=== PATIENT | female | born 1990 | race Caucasian/White ===

== ENCOUNTER 2022-05-05 10:12 | Emergency (ER) | payer BC, SELFPAY ==
[2022-05-05 10:59] VITALS: BP 150/80; PULSE 70; RESP 18; TEMP 36.6; O2SAT 100
--- NOTE | 2022-05-05 11:46 | ED.GENADULT ---
HPI - General Adult General Chief complaint: Wound/Laceration Stated complaint: finger laceration History of Present Illness HPI narrative: patient is a 32-year-old female who presents to the [facility] via POV for evaluation a right index finger laceration that occurred just prior to arrival. Patient reports she was removing a toaster oven from her car when she accidentally lacerated finger on yhe bottom of the toaster oven. She reports bleeding and tenderness. Bleeding resolved with pressure. She is up-to-date on her tetanus. Related Data Home Medications Medication Instructions Recorded Confirmed sertraline 50 mg tablet 50 mg PO DAILY 05/05/22 05/05/22 Allergies Allergy/AdvReac Type Severity Reaction Status Date / Time No Known Allergies Allergy Verified 05/05/22 10:57 Review of Systems Review of Systems: Pertinent negatives: fever, chills, sweats, change in appetite, malaise, headache, dizziness, LOC, lymphadenopathy, vision changes, difficulty healing, petechiae, pruritus, easy bruising, uncontrolled bleeding, range of motion, deformity, paresthesias, loss of sensation, shortness of breath, chest pain, and heart palpitations/murmurs. PMFSH Comments I have reviewed and agree with the patient's past medical, surgical, social, and family hx as documented by the RN. There is no relevant family history pertinent to the presenting complaint. Exam Narrative: GENERAL: Well-appearing, well-nourished, and in no acute distress. HEAD: Normocephalic, atraumatic. No facial swelling appreciated. EYES: PERRLA and EOMI. No evidence of erythema, swelling, or drainage. ENT: Nares clear, no rhinorrhea or epistaxis.Mucous membranes moist and pink. Uvula is midline without erythema and swelling. No evidence of obstruction, petechial rash, cobblestoning, lesions, ulcers, erythema, swelling, exudates, peritonsillar abscess, tenting, or drooling. Breath odor and voice normal. NECK: Supple. No Lymphadenopathy or nuchal rigidity appreciated. CHEST: Bilateral lung chowdhury are clear to auscultation. No respiratory distress. No evidence of cough or pleuritic cp upon examination. HEART: Regular rate and rhythm. No murmur, gallop, or rub heard. Pulses 2+ throughout. EXTREMITIES: Normal range of motion. No edema. SKIN: Warm, dry. 1 cm, irregular laceration noted to the palmar side, distal end of right index finger. no evidence of bleeding. NEURO: No focal deficits. Alert and oriented x3. Course Course Level of Care: Express Care Visit Vital Signs Vital signs: Vital Signs Temperature 97.9 F 05/05/22 10:59 Pulse Rate 70 05/05/22 10:59 Respiratory Rate 18 05/05/22 10:59 Blood Pressure 150/80 H 05/05/22 10:59 Pulse Oximetry 100 05/05/22 10:59 Oxygen Delivery Room Air 05/05/22 10:59 Temperature 97.9 F 05/05/22 10:59 Pulse Rate 70 05/05/22 10:59 Respiratory Rate 18 05/05/22 10:59 Blood Pressure 150/80 H 05/05/22 10:59 Pulse Oximetry 100 05/05/22 10:59 Oxygen Delivery Room Air 05/05/22 10:59 Due to an elevated blood pressure, I had a detailed discussion with the patient and/or guardian regarding the need for follow-up with their primary care provider within the next 3-4 days. Patient verbalized understanding and agreed. Procedures Laceration Laceration 1: Date: 05/05/22 Site: other ( palmar aspect of right index finger) Side (If applicable): right Size (cm): 1 Description: linear, irregular and clean ====== Skin Level ====== Skin layer closed with: steri strips ( 3) ====== Subcutaneous Layer ====== ====== Muscle Layer ====== ====== Tendon Layer ====== Medical Decision Making Differential Diagnosis Differential Diagnosis: laceration, abrasion, avulsion Vital Signs Vital Signs: Vital Signs Temperature 97.9 F 05/05/22 10:59 Pulse Rate 70 05/05/22 10:59 Respiratory Rate 18 05/05/22 10:59
== END 2022-05-05 11:46 | disposition home or self-care (01) ==
PROVIDERS: Emergency Provider Nurse Practitioner Family; PCP Family Medicine
DX: S65.510A Laceration of blood vessel of right index finger, initial encounter (principal); W45.8XXA Other foreign body or object entering through skin, initial encounter
CPT/HCPCS: 99202; G0463

== ENCOUNTER 2024-09-22 20:28 | Emergency (ER) | payer OTHER, SELFPAY ==
--- NOTE | ~2024-09-22 | XR_ITS ---
EXAMINATION: XR foot LT min 3V DATE: 09/22/2024 21:23 INDICATION: Left foot pain and swelling. Injury. TECHNIQUE: 4 views of left foot were obtained. COMPARISON: None. FINDINGS: There is a bunionette deformity of the fifth digit. There are chip avulsion fractures of do rsolateral aspect of anterior process of calcaneus. Joint spaces are normal. IMPRESSION: 1. Chip avulsion fractures of dorsolateral aspect of anterior process of calcaneus. Reviewed, dictated and finalized at location A. IMPRESSION: 1. Chip avulsion fractures of dorsolateral aspect of anterior process of calcan eus.
--- NOTE | ~2024-09-22 | XR_ITS ---
EXAMINATION: XR foot RT min 3V DATE: 09/22/2024 21:23 INDICATION: Right foot injury. TECHNIQUE: 4 views of right foot were obtained. COMPARISON: None. FINDINGS: There is a bunionette deformity of the fifth digit. No fracture. Joint spaces are normal. IMPRESSION: 1. No fracture. Reviewed, dictated and finalized at location A. IMPRESSION: 1. No fracture.
--- OUTSIDE RECORDS SUMMARY | 2024-09-22 20:30 | XMS_ITS | Clinical Summary ---
Author Organization [address] Address [address] [place] [id number] Care Team Providers Care Customs House Broker Name Role Phone Bailey Dalton MD Primary Care Provi ulises Bailey Dalton MD Unavailable [phone] Allergies Active Allergy Reactions Criticality Noted Date Comments Clindamycin Hives Medium 04/15/2019 Erythromycin Unknown 04/15/2019 Medications omeprazole (PriLOSEC) 10 mg capsule Take 1 capsule (10 mg total) by mouth as needed Active cyclobenzaprine (FLEXERIL) 10 mg tablet Take 1 tablet (10 mg total) by mouth nightly as needed for muscle spasms 15 tablet 11/11/2023 Active sertraline (ZOLOFT) 50 mg tabletIndicatio ns:Anxiety,Depr ession, major, recurrent, mild TAKE 1 TABLET(50 MG) BY MOUTH DAILY 100 tablet 1 12/01/2023 Active Active Problems Problem Noted Date Diagnosed Date Breast cyst, right 05/17/2021 Menorrhagia with regular cycle 03/13/2021 Assessment & Plan (06/25/2022 8:55 AM SOLID WASTE LANDFILL TECHNICIAN): Continue to follow with MANAGER RETENTION- set up follow up Update me with any changes Assessment & Plan (03/13/2021 8:52 AM CDT): Previously treated with OCP Will refer to MANAGER RETENTION- does want to hold off on OCP's for now Will check labs for possible PCOS Update me after the visit Call for questions or concerns Well adult exam 05/01/2019 Overview (06/25/2022): Encouraged a healthy diet, and regular physical activity to her level Wear sun screen, seat belts No texting/drinking and driving Health Maintenance: Last PAP: 05/17/21- Neg Last Tdap: 04/2019 Last Flu: 2021 Last COVID: encouraged Assessment & Plan (06/25/2022 8:53 AM SOLID WASTE LANDFILL TECHNICIAN): Encouraged a healthy diet, and regular physical activity to her level Wear sun screen, seat belts No texting/drinking and driving Health Maintenance: Last PAP: 05/17/21- Neg Last Tdap: 04/2019 Last Flu: 2021 Last COVID: encouraged Assessment & Plan (03/13/2021 8:43 AM CDT): Encouraged a healthy diet, and regular physical activity to her level Wear sun screen, seat belts No texting/drinking and driving Health Maintenance: Last PAP: 2years ago- [facility]. Will refer to MANAGER RETENTION Last Tdap: 04/2019 Last Flu: encourage Last COVID: encouraged Assessment & Plan (05/01/2019 11:09 AM CDT): Work on healthy low carb diet Healthy activity for 30 minutes daily Wear sun screen, seat belts No texting/drinking and driving Health Maintenance: Last PAP:last month Last Tdap:: today Last Flu: todat IFG (impaired fasting glucose) 05/01/2019 Assessment & Plan (06/25/2022 8:54 AM SOLID WASTE LANDFILL TECHNICIAN): Chronic Labs ordered Continue healthy changes Call for questions or concerns Assessment & Plan (03/13/2021 8:44 AM CDT): Continue to work on low carb diet Recheck labs in 6 months Call for questions or concerns Assessment & Plan (05/01/2019 11:10 AM CDT): Labs ordered Low carb diet Class 3 severe obesity due t o excess calories without serious comorbidity with body mass index (BMI) of 40.0 to 44.9 in adult 05/01/2019 Assessment & Plan (11/11/2023 3:30 PM CDT): BMI Follow-up includes: exercise counseling. Assessment & Plan (06/25/2022 8:54 AM SOLID WASTE LANDFILL TECHNICIAN): BMI Follow-up includes: nutrition counseling. Assessment & Plan (03/13/2021 8:44 AM CDT): BMI Follow-up includes: nutrition counseling. Assessment & Plan (09/09/2019 8:54 AM SOLID WASTE LANDFILL TECHNICIAN): BMI Follow-up includes: nutrition counseling. Assessment & Plan (05/01/2019 11:11 AM CDT): BMI Follow-up includes: nutrition counseling. Depression, major, recurrent, mild 04/15/2019 Assessment & Plan (06/25/2022 8:54 AM SOLID WASTE LANDFILL TECHNICIAN): Chronic, stable Continue zoloft Continue healthy changes for her mood Call if s/sx worsen or change Assessment & Plan (03/13/2021 8:46 AM CDT): Continue healthy changes for her mood Continue zoloft- encouraged to take zoloft daily Recheck in 6 months Call for questions or concerns Assessment & Plan (09/09/2019 8:53 AM SOLID WASTE LANDFILL TECHNICIAN): Doing well on current regimen Continue current medication Continue healthy changes to boost mood- exercise, healthy diet, using support structures that are in place, and good sleep habits If mood worsens or changes, please contact the office Anything emergent, to the er Call for questions or concerns Assessment & Plan (05/01/2019 11:10 AM CDT): Improved Will increase zoloft Work on healthy changes to boost mood Continue with therapist Any dangerous thoughts to the er Assessment & Plan (04/15/2019 8:50 AM CDT): Patient reiterated no suicidal thoughts at this time zoloft 25 mg daily take medication as directed encouraged healthy diet and exercise encouraged patient to see a counselor use support structures you have in place consider meditation-look at Calm claude try to work on healthy sleep habits If mood worsens or changes, please contact the office Anything emergent, to the er Anxiety 04/15/2019 Assessment & Plan (06/25/2022 8:54 AM SOLID WASTE LANDFILL TECHNICIAN): Chronic, stable Continue zoloft Continue healthy changes for her mood Call if s/sx worsen or change Assessment & Plan (03/13/2021 8:44 AM CDT): Mood is fair Continue zoloft- try to take daily Continue to work on healthy changes for her mood Call for questions or concerns Assessment & Plan (04/15/2019 8:50 AM CDT): Will start zoloft Continue to follow with her therapist Update me with any changes Follow up in 4 weeks Call for questions or concerns Resolved Problems Problem Noted Date Diagnosed Date Resolved Date Pap smear for cervical cancer screening 05/17/2021 06/25/2022 STD exposure 05/17/2021 06/25/2022 Sternum pain 03/13/2021 09/03/2023 Assessment & Plan (03/13/2021 8:50 AM CDT): Improving Xray ordered Motrin as needed Call for questions or concerns Left elbow pain 03/13/2021 09/03/2023 Assessment & Plan (03/13/2021 8:49 AM CDT): Improving Xray ordered Rest, ice as needed Motrin as needed Call for questions or concerns Loose stools 03/13/2021 06/25/2022 Assessment & Plan (03/13/2021 8:50 AM CDT): Will check labs Consider referral to GI FODMAPS list given Call for questions or concerns Elevated liver function tests 05/01/2019 09/03/2023 Assessment & Plan (03/13/2021 8:45 AM CDT): Recheck was normal Assessment & Plan (05/01/2019 11:11 AM CDT): Recheck in 3 months Nausea 04/15/2019 03/13/2021 Assessment & Plan (04/15/2019 8:51 AM CDT): With anxiety Will start medication to treat anxiety, and see if symptoms improve If symptoms change or worsen, let me know Immunizations Immunization Administration Dates Next Due Influenza, Quadrivalent, Spl it, Preservative Free, Intramuscular 05/01/2019 Influenza, Unspecified 04/14/2023(Deferr ed: Patient Refused),04/14/2022,04/14/2021(Deferre d: Patient Refused),04/14/2018(Deferred: Patient Refused) Meningococcal ACWY, Unspecified 02/19/2021 Tdap 05/01/2019 Surgical History Surgery Date Site/Laterality Comments TONSILLECTOMY 07/15/2005 - 07/14/2006 WISDOM TOOTH EXTRACTION 07/15/2009 - 07/14/2010 ABCESS DRAINAGE 07/15/2011 - 07/14/2012 MRSA treatment Medical History Medical History Date Comments Depression Anxiety GERD (gastroesophageal reflux disease) Peptic ulceration History of multiple miscarriages 2 Sleep apnea 2019 Menstrual problem Family History Medical History Relation Name Comments ADD / ADHD Brother OCD Brother Hypertension Father Horace Browning Psoriasis Father Horace Browning Heart disease Maternal Grandfather Cody Dementia Maternal Grandmother Rita Diabetes Maternal Grandmother Rita Stroke Maternal Grandmother Rita Asthma Mother Genevieve Browning Gastroesophageal Reflux Disease Mother Genevieve Hamm nald Heart disease Mother Genevieve Browning Heart disease Mother's Brother Nick No Known Problems Paternal Grandfather Heart disease Paternal Grandmother Марина Stroke Paternal Grandmother Марина Breast cancer Neg Hx Relation Name Status Comments Brother Alive Father Horace Browning Alive Maternal Grandfather Cody Maternal Grandmother Rita Mother Genevieve Browning Alive Mother's Brother Nick Paternal Grandfather Alive Paternal Grandmother Марина Social History Tobacco Use Types Packs/Day Years Used Date Smoking Tobacco: Former Cigarettes 0.2 5 0 07/15/2011 - 01/30/2019 Hookah E-cigarettes Smokeless Tobacco: Never Tobacco Cessation:Counseling Given: Not Answered Alcohol Use Standard Drinks/Week Comments Yes 0 (1 standard drink = 0.6 oz pur e alcohol) AUDIT-C Answer Date Recorded Q1: How often do you have a drink containing alc ohol? 2-4 times a month 11/11/2023 Q2: How many drinks containi ng alcohol do you have on a typical day when you are drinking? 1 or 2 11/11/2023 Q3: How often do you have si x or more drinks on one occasion? Never 11/11/2023 PHQ-2 Answer Date Recorded PHQ-2 Total Score (If total score is 3 or more points, staff should administer the PHQ-9) 0 11/11/2023 Personal Safety Answer Date Recorded Getting School Help Needed Not on file 06/25 Comments No Sex and Gender Information Value Date Recorded Sex Assigned at Not on file Legal Sex Female 8:55 PM SOLID WASTE LANDFILL TECHNICIAN Gender Identity Female 10/04/2019 8:16 PM CDT Sexual Orientation Straight 10/04/2019 8: 16 PM CDT Obstetrics History Last Filed Vital Signs Vital Sign Reading Time Taken Comments Blood Pressure 120/78 11/11/2023 2:55 PM CDT Pulse 76 11/11/2023 2:55 PM CDT Temperature 36.7 C (98 F) 11/11/2023 2:55 PM CDT Respiratory Rate 16 11/11/2023 2:55 PM CDT Oxygen Saturation 99% 11/11/2023 2:55 PM CDT Inhaled Oxygen Concentration - - Weight 116.9 kg (257 lb 12.8 oz) 11/11/2023 2:55 PM CDT Height 165.1 cm (5' 5 ) 11/11/2023 2:55 PM CDT Body Mass Index 42.9 11/11/2023 2:55 PM CDT Plan of Treatment Health Maintenance Due Date Last Done Comments Hepatitis B Screening 2010 Covid-19 Vaccine ( season) 2024 03/22/2021, 02/22/2021 Influenza Vaccine (#1) 2024 04/14/2022, 2018 Cervical Cancer Screening 05/17/2024 05/17/2021 Regular Well Visit/Exam 18-64 09/03/2024 09/03/2023, 09/03/2023, 06/25/2022, Additional history exists Depression Screening 11/10/2024 11/11/2023, 09/03/2023, 09/03/2023, Additional history exists DTaP/Tdap/Td Vaccine (2 - Td or Tdap) 05/01/2029 05/01/2019 Hepatitis C Screening Completed 10/10/2013 HPV Vaccines Aged Out No longer eligi ble based on patient's age to complete this topic Pneumococcal vaccine <65 Aged Out No longer eligible based on patient's age to complete this topic Varicella Vaccines Discontinued Procedures Procedure Name Priority Date/Time Associated Diagnosis Comments HEPATITIS PANEL, ACUTE Routine 10/10/2013 4:00 PM CDT from Last 3 Months or Most Recently Relevant to Health Maintenance Results * (ABNORMAL) Hepatitis panel, acute (10/10/2013 4:00 PM CDT) HepBsAg NONREACT NONREACTIVE 10/10/2013 5:33 PM CDT [facility] [employer] HISTORICAL RESULTS Comment: Siemens CentaurXP using JOSIAH (chemiluminescent immunoassay) technology. NONREACTIVE: IgM antibodies to Hepatitis B Surface antigen not detected. REACTIVE: IgM antibodies to Hepatitis B Surface antigen detected. Reactive results will be confirmed by neutralization testing. HBsAb (immune status) REACTIVE(H) NONREACTIVE Comment: Siemens CentaurXP using JOSIAH (chemiluminescent immunoassay) technology. NONREACTIVE: IgM antibodies to Hepatitis B Surface antibody not detected. REACTIVE: IgM antibodies to Hepatitis B Surface antibody detected. Hep B core IgM NONREACT NONREACTIVE 4 5:33 PM CDT [facility] HISTORICAL RESULTS Comment: Siemens CentaurXP using JOSIAH (chemiluminescent immunoassay) technology. NONREACTIVE: IgM antibodies to Hepatitis B Core antigen not detected. EQUIVOCAL: IgM antibodies to Hepatitis B Core antigen may or may not be present. Obtain a new specimen and retest. REACTIVE: IgM antibodies to Hepatitis B Core antigen detected. Hep A IgM NONREACT NONREACTIVE Comment: Siemens CentaurXP using JOSIAH (chemiluminescent immunoassay) technology. NONREACTIVE: IgM antibodies to Hepatitis A not detected. This does not exclude possibility of exposure to Hepatitis A or early acute infection. EQUIVOCAL:IgM antibodies to Hepatitis A may or may not be present. Suggest recollection and retest. REACTIVE: Antibodies to Hepatitis A detected. Hep C Ab NONREACT NONREACTIVE 10/10/2013 5:33 PM CDT [facility] HISTORICAL RESULTS Comment: Siemens CentaurXP using JOSIAH (chemiluminescent immunoassay) technology. NONREACTIVE: Antibodies to Hepatitis C not detected. This does not exclude early acute Hepatitis C infection, possibility of exposure to Hepatitis C, antibodies below detection limit, or to lack of antibody reactivity to the antigen used in this assay. EQUIVOCAL: Antibodies to Hepatitis C may or may not be present. Sample to be confirmed by real-time PCR method. REACTIVE: Antibodies to Hepatitis C detected. 10/10/2013 4:00 PM CDT 10/10/2013 4:08 PM CDT us Sammie Chi NP LAB MICROBIOLOGY - GENERAL O RDERABLES Final Result Performing Organization Address City/State/[facility] Co de Phone Number [facility] HISTORICAL RESULTS from Last 3 Months or Most Recently Relevant to Health Maintenance Insurance [facility] CHOICE PLUS Care Teams Customs House Broker Relationship Specialty Start Date End Date Bailey Dalton MD [address] [place] [address] PCP - General 09/09/19 Bailey Dalton MD [address] [place] [address] Family Medicine 09/09/19
--- OUTSIDE RECORDS SUMMARY | 2024-09-22 20:30 | XMS_ITS | Referral Summary ---
Author Organization [address] Address [address] [place] [id number] Care Team Providers Care Cardiology Clinical Consultant Name Role Phone Bailey Dalton MD Primary Care Provi ulises Bailey Dalton MD Unavailable [phone] Allergies Active Allergy Reactions Criticality Noted Date [...] 03/13/2021 Assessment & Plan (06/25/2022 8:55 AM MIXER AND SCALER): Continue to follow with DOOR MACHINE OPERATOR- set up follow up Update me with any changes Assessment & Plan (03/13/2021 8:52 AM CDT): Previously treated with OCP Will refer to DOOR MACHINE OPERATOR- does want to hold off on OCP's [...] encouraged Assessment & Plan (06/25/2022 8:53 AM MIXER AND SCALER): Encouraged a healthy diet, and regular physical [...] driving Health Maintenance: Last PAP: 2years ago- [facility]. Will refer to DOOR MACHINE OPERATOR Last Tdap: 04/2019 Last Flu: encourage Last COVID: encouraged Assessment & Plan (05/01/2019 11:09 AM CDT): Work on healthy low carb diet Healthy activity for 30 minutes daily Wear sun screen, seat belts No texting/drinking and driving Health Maintenance: Last PAP:last month Last Tdap:: today Last Flu: todat IFG (impaired fasting glucose) 05/01/2019 Assessment & Plan (06/25/2022 8:54 AM MIXER AND SCALER): Chronic Labs ordered Continue healthy changes Call [...] counseling. Assessment & Plan (06/25/2022 8:54 AM MIXER AND SCALER): BMI Follow-up includes: nutrition counseling. Assessment & Plan (03/13/2021 8:44 AM CDT): BMI Follow-up includes: nutrition counseling. Assessment & Plan (09/09/2019 8:54 AM MIXER AND SCALER): BMI Follow-up includes: nutrition counseling. Assessment & Plan (05/01/2019 11:11 AM CDT): BMI Follow-up includes: nutrition counseling. Depression, major, recurrent, mild 04/15/2019 Assessment & Plan (06/25/2022 8:54 AM MIXER AND SCALER): Chronic, stable Continue zoloft Continue healthy changes for her mood Call if s/sx worsen or change Assessment & Plan (03/13/2021 8:46 AM CDT): Continue healthy changes for her mood Continue zoloft- encouraged to take zoloft daily Recheck in 6 months Call for questions or concerns Assessment & Plan (09/09/2019 8:53 AM MIXER AND SCALER): Doing well on current regimen Continue current [...] 04/15/2019 Assessment & Plan (06/25/2022 8:54 AM MIXER AND SCALER): Chronic, stable Continue zoloft Continue healthy changes [...] Refused) Meningococcal ACWY, Unspecified 02/19/2021 Tdap 05/01/2019 Social History Tobacco Use Types Packs/Day Years [...] on file Legal Sex Female 8:55 PM MIXER AND SCALER Gender Identity Female 10/04/2019 8:16 PM CDT Sexual Orientation Straight 10/04/2019 8: 16 PM CDT Last Filed Vital Signs Vital Sign Reading [...] 11/11/2023 2:55 PM CDT Plan of Treatment Not on file Procedures Procedure Name Priority Date/Time Associated Diagnosis Comments HEPATITIS PANEL, ACUTE Routine 10/10/2013 4:00 PM CDT from Last 3 Months or Most Recently Relevant to Health Maintenance Results * (ABNORMAL) Hepatitis panel, acute (10/10/2013 4:00 PM CDT) HepBsAg NONREACT NONREACTIVE 10/10/2013 5:33 PM CDT [facility] HISTORICAL RESULTS Comment: Siemens FangxinmeiaurXP using JOSIAH (chemiluminescent immunoassay) technology. NONREACTIVE: IgM antibodies to Hepatitis B Surface antigen not detected. REACTIVE: IgM antibodies to Hepatitis B Surface antigen detected. Reactive results will be confirmed by neutralization testing. HBsAb (immune status) REACTIVE(H) NONREACTIVE 10/10/2013 4:53 PM CDT [facility] HISTORICAL RESULTS Comment: Siemens CentaurXP using JOSIAH (chemiluminescent immunoassay) technology. NONREACTIVE: IgM antibodies to Hepatitis B Surface antibody not detected. REACTIVE: IgM antibodies to Hepatitis B Surface antibody detected. Hep B core IgM NONREACT NONREACTIVE 4 5:33 PM CDT [facility] HISTORICAL RESULTS Comment: Siemens CentaurXP using JOSIAH (chemiluminescent immunoassay) technology. NONREACTIVE: IgM antibodies to Hepatitis B Core antigen not detected. EQUIVOCAL: IgM antibodies to Hepatitis B Core antigen may or may not be present. Obtain a new specimen and retest. REACTIVE: IgM antibodies to Hepatitis B Core antigen detected. Hep A IgM NONREACT NONREACTIVE 10/10/2013 5:33 PM CDT [facility] HISTORICAL RESULTS Comment: Siemens CentaurXP using JOSIAH (chemiluminescent immunoassay) technology. NONREACTIVE: IgM antibodies to Hepatitis A not detected. This does not exclude possibility of exposure to Hepatitis A or early acute infection. EQUIVOCAL:IgM antibodies to Hepatitis A may or may not be present. Suggest recollection and retest. REACTIVE: Antibodies to Hepatitis A detected. Hep C Ab NONREACT NONREACTIVE 10/10/2013 5:33 PM CDT [facility] HISTORICAL RESULTS Comment: Siemens CentaurXP using JOSIAH [...] 4:00 PM CDT 10/10/2013 4:08 PM CDT Sammie Chi NP LAB MICROBIOLOGY - GENERAL O RDERABLES Final Result Performing Organization Address City/State/[facility] Co de Phone Number [facility] HISTORICAL RESULTS from Last 3 Months or Most Recently Relevant to Health Maintenance Insurance [facility] CHOICE PLUS Care Teams Cardiology Clinical Consultant Relationship Specialty Start Date End Date Bailey Dalton MD [address] [place] [address] PCP - General 09/09/19 Bailey Dalton MD [address] [place], [place] [id number] Family Medicine 09/09/19
[2024-09-22 20:32] VITALS: BP 126/68; PULSE 68; RESP 14; TEMP 36.3; O2SAT 100
--- OUTSIDE RECORDS SUMMARY | 2024-09-22 21:47 | XMS_ITS | Referral Summary ---
Author Organization [address] Address [address] [place] [id number] Care Team Providers Care Quality Associate Name Role Phone Bailey Dalton MD Primary Care Provi ulises Bailey Dalton MD Unavailable [phone] Allergies Active Allergy Reactions Criticality Noted Date [...] 03/13/2021 Assessment & Plan (06/25/2022 8:55 AM EXECUTIVE OFFICER): Continue to follow with SAP TECHNICAL DEVELOPER- set up follow up Update me with any changes Assessment & Plan (03/13/2021 8:52 AM CDT): Previously treated with OCP Will refer to SAP TECHNICAL DEVELOPER- does want to hold off on OCP's [...] encouraged Assessment & Plan (06/25/2022 8:53 AM EXECUTIVE OFFICER): Encouraged a healthy diet, and regular physical [...] driving Health Maintenance: Last PAP: 2years ago- [facility]. Will refer to SAP TECHNICAL DEVELOPER Last Tdap: 04/2019 Last Flu: encourage Last COVID: encouraged Assessment & Plan (05/01/2019 11:09 AM CDT): Work on healthy low carb diet Healthy activity for 30 minutes daily Wear sun screen, seat belts No texting/drinking and driving Health Maintenance: Last PAP:last month Last Tdap:: today Last Flu: todat IFG (impaired fasting glucose) 05/01/2019 Assessment & Plan (06/25/2022 8:54 AM EXECUTIVE OFFICER): Chronic Labs ordered Continue healthy changes Call [...] counseling. Assessment & Plan (06/25/2022 8:54 AM EXECUTIVE OFFICER): BMI Follow-up includes: nutrition counseling. Assessment & Plan (03/13/2021 8:44 AM CDT): BMI Follow-up includes: nutrition counseling. Assessment & Plan (09/09/2019 8:54 AM EXECUTIVE OFFICER): BMI Follow-up includes: nutrition counseling. Assessment & Plan (05/01/2019 11:11 AM CDT): BMI Follow-up includes: nutrition counseling. Depression, major, recurrent, mild 04/15/2019 Assessment & Plan (06/25/2022 8:54 AM EXECUTIVE OFFICER): Chronic, stable Continue zoloft Continue healthy changes for her mood Call if s/sx worsen or change Assessment & Plan (03/13/2021 8:46 AM CDT): Continue healthy changes for her mood Continue zoloft- encouraged to take zoloft daily Recheck in 6 months Call for questions or concerns Assessment & Plan (09/09/2019 8:53 AM EXECUTIVE OFFICER): Doing well on current regimen Continue current [...] 04/15/2019 Assessment & Plan (06/25/2022 8:54 AM EXECUTIVE OFFICER): Chronic, stable Continue zoloft Continue healthy changes [...] on file Legal Sex Female 8:55 PM EXECUTIVE OFFICER Gender Identity Female 10/04/2019 8:16 PM CDT [...] (10/10/2013 4:00 PM CDT) HepBsAg NONREACT NONREACTIVE Comment: Siemens AffresolaurXP using JOSIAH (chemiluminescent immunoassay) technology. NONREACTIVE: IgM [...] IgM NONREACT NONREACTIVE 4 5:33 PM CDT [facility] HISTORICAL RESULTS Comment: Siemens CentaurXP using JOSIAH (chemiluminescent immunoassay) technology. NONREACTIVE: IgM antibodies to Hepatitis B Core antigen not detected. EQUIVOCAL: IgM antibodies to Hepatitis B Core antigen may or may not be present. Obtain a new specimen and retest. REACTIVE: IgM antibodies to Hepatitis B Core antigen detected. Hep A IgM NONREACT NONREACTIVE 10/10/2013 5:33 PM CDT [facility] Comment: Siemens CentaurXP using JOSIAH (chemiluminescent immunoassay) technology. NONREACTIVE: IgM antibodies to Hepatitis A not detected. This does not exclude possibility of exposure to Hepatitis A or early acute infection. EQUIVOCAL:IgM antibodies to Hepatitis A may or may not be present. Suggest recollection and retest. REACTIVE: Antibodies to Hepatitis A detected. Hep C Ab NONREACT NONREACTIVE Comment: Siemens CentaurXP using JOSIAH [...] O RDERABLES Final Result Performing Organization Address City/State/[facility] Co de Phone Number [facility] HISTORICAL RESULTS from Last 3 Months or Most Recently Relevant to Health Maintenance Insurance [facility] CHOICE PLUS Care Teams Quality Associate Relationship Specialty Start Date End Date Bailey Dalton MD [address] [place] [address] PCP - General 09/09/19 Bailey Dalton MD [address] [place], [place] [id number] Family Medicine 09/09/19
--- OUTSIDE RECORDS SUMMARY | 2024-09-22 21:47 | XMS_ITS | Clinical Summary ---
Author Organization [address] Address [address] [place] [id number] Care Team Providers Care Antique Furniture Reproducer Name Role Phone Bailey Dalton MD Primary Care Provi ulises Bailey Dalton MD Unavailable [phone] Allergies Active Allergy Reactions Criticality Noted Date [...] 03/13/2021 Assessment & Plan (06/25/2022 8:55 AM MANAGER FORENSIC): Continue to follow with CLOTH WEAVER- set up follow up Update me with any changes Assessment & Plan (03/13/2021 8:52 AM CDT): Previously treated with OCP Will refer to CLOTH WEAVER- does want to hold off on OCP's [...] encouraged Assessment & Plan (06/25/2022 8:53 AM MANAGER FORENSIC): Encouraged a healthy diet, and regular physical [...] driving Health Maintenance: Last PAP: 2years ago- [facility]. Will refer to CLOTH WEAVER Last Tdap: 04/2019 Last Flu: encourage Last COVID: encouraged Assessment & Plan (05/01/2019 11:09 AM CDT): Work on healthy low carb diet Healthy activity for 30 minutes daily Wear sun screen, seat belts No texting/drinking and driving Health Maintenance: Last PAP:last month Last Tdap:: today Last Flu: todat IFG (impaired fasting glucose) 05/01/2019 Assessment & Plan (06/25/2022 8:54 AM MANAGER FORENSIC): Chronic Labs ordered Continue healthy changes Call [...] counseling. Assessment & Plan (06/25/2022 8:54 AM MANAGER FORENSIC): BMI Follow-up includes: nutrition counseling. Assessment & Plan (03/13/2021 8:44 AM CDT): BMI Follow-up includes: nutrition counseling. Assessment & Plan (09/09/2019 8:54 AM MANAGER FORENSIC): BMI Follow-up includes: nutrition counseling. Assessment & Plan (05/01/2019 11:11 AM CDT): BMI Follow-up includes: nutrition counseling. Depression, major, recurrent, mild 04/15/2019 Assessment & Plan (06/25/2022 8:54 AM MANAGER FORENSIC): Chronic, stable Continue zoloft Continue healthy changes for her mood Call if s/sx worsen or change Assessment & Plan (03/13/2021 8:46 AM CDT): Continue healthy changes for her mood Continue zoloft- encouraged to take zoloft daily Recheck in 6 months Call for questions or concerns Assessment & Plan (09/09/2019 8:53 AM MANAGER FORENSIC): Doing well on current regimen Continue current [...] 04/15/2019 Assessment & Plan (06/25/2022 8:54 AM MANAGER FORENSIC): Chronic, stable Continue zoloft Continue healthy changes [...] on file Legal Sex Female 8:55 PM MANAGER FORENSIC Gender Identity Female 10/04/2019 8:16 PM CDT [...] HepBsAg NONREACT NONREACTIVE 10/10/2013 5:33 PM CDT [facility] [employer] HISTORICAL RESULTS Comment: Siemens CentaurXP using JOSIAH [...] IgM NONREACT NONREACTIVE 4 5:33 PM CDT [facility] HISTORICAL RESULTS Comment: Siemens CentaurXP using JOSIAH [...] Ab NONREACT NONREACTIVE 10/10/2013 5:33 PM CDT [facility] [place] Comment: Siemens CentaurXP using JOSIAH [...] O RDERABLES Final Result Performing Organization Address City/State/[facility] Co de Phone Number [facility] [place] H[place] RES[place] from Last 3 Months or Most Recently Relevant to Health Maintenance Insurance [facility] CHOICE PLUS Care Teams Antique Furniture Reproducer Relationship Specialty Start Date End Date Bailey Dalton MD [address] [place] [address] PCP - General 09/09/19 Bailey Dalton MD [address] [place] [address] Family Medicine 09/09/19
--- NOTE | 2024-09-22 22:01 | ED_ITS ---
HPI - Extremity Injury (Lower) General Chief Complaint: Extremity Injury, Lower Stated Complaint: L foot pain Time Seen by Provider: 09/22/24 21:15 History of Present Illness HPI Narrative: 34-year-old female presenting for evaluation of foot injury while she was on a porch swing. The swing collapsed and she landed on her left foot and the porch fell on top lip. She was able to get up unassisted but knows that she is having some painful walking. She had minor abrasions and bleeding to her left 4th and 5th toe. Previous nail avulsions on those toes as well. Endorses having her tetanus already updated recently. No head trauma or loss consciousness. Was otherwise in her normal state of health. Related Data Home Medications ?Medication ?Instructions ?Recorded ?Confirmed ?Last Taken ?Type sertraline 50 mg tablet 50 mg PO DAILY 05/05/22 05/05/22 Unknown History Allergies Allergy/AdvReac Type Severity Reaction Status Date / Time clindamycin Allergy Unknown Rash Verified 09/22/24 20:34 Review of Systems Review of Systems: As reviewed above in HPI Exam Narrative: GENERAL: [Well-appearing, well-nourished, and in no acute distress.] HEAD: [Normocephalic, atraumatic.] EYES: [PERRLA and EOMI.] ENT: Nares clear, no rhinorrhea or epistaxis. Mucous membranes moist. NECK: Supple. CHEST: [Clear to auscultation. No respiratory distress.] HEART: [Regular rate and rhythm]. No murmur heard. [Normal peripheral pulses.] ABDOMEN: [Soft, nondistended], [nontender], [No rigidity or guarding] EXTREMITIES: Swelling and tenderness over the left lateral aspect of the malleolus on the left foot. Fourth toe has a nail avulsion with incomplete separation, no hematoma or bleeding. Small abrasion left lateral midfoot. No bleeding. No open fracture. Plantar and dorsiflexion with 5/5 strength b ilaterally. Minor tenderness over the right lateral malleolus as well without any bruising or overlying skin changes. No plantar ecchymosis bilaterally. Able to ambulate although uncomfortable. SKIN: Warm, dry, no rash. NEURO: [No focal deficits]. Alert and oriented [x3.] PSYCH: [Normal mood and affect.] Course Vital Signs Vital signs: Vital Signs Temperature 36.3 C L 09/22/24 20:32 Pulse Rate 68 09/22/24 20:32 Respiratory Rate 14 09/22/24 20:32 Blood Pressure 126/68 09/22/24 20:32 Pulse Oximetry 100 09/22/24 20:32 Oxygen Delivery Room Air 09/22/24 20:32 Temperature 36.3 C L 09/22/24 20:32 Pulse Rate 68 09/22/24 20:32 Respiratory Rate 14 09/22/24 20:32 Blood Pressure 126/68 09/22/24 20:32 Pulse Oximetry 100 09/22/24 20:32 Oxygen Delivery Room Air 09/22/24 20:32 Procedures Orthopedic Splinting/Casting Injury #1: Splinting/Casting Date: 09/22/24 Splinting/Casting Time: 22:09 Side: left Lower Extremity Injury Location: ankle Lower Extremity Immobilizer: posterior splint Splint: customized in ED Pre-Procedure Neuro Vascular Exam: normal Post-Procedure Neuro Vascular Exam: normal Other Orthopedic Equipment: crutches MDM - Extremity Injury (Lower) MDM Narrative Medical decision making narrative: 34-year-old female presenting to the emergency department for injury to her foot after she fell off a porch swing. Patient has some minor abrasions to the left lateral foot as well as a partial nail avulsion of the 4th digit. Able to wiggle her toes and has good plantar and dorsiflexion. There is some focal swelling and tenderness of the left lateral malleolus. No overlying skin changes or obvious fracture. X-rays of the bilateral ankles and feet were obtained given the injury. She politely declined any analgesia medications. She is hemodynamically stable with 2+ dorsalis pedis pulses and warm extremities. X-ray of the left foot shows chip avulsion fracture of the dorsal lateral anterior process of the calcaneus. Right ankle without any fracture deformity. Patient was provided a short leg posterior splint for stability and pain control. Her left 4th toe has a partial nail avulsion which I offered to fully remove the patient politely declined. Neosporin was applied and wound was cleaned and dressed. She will be given crutches for ambulation and referred to Podiatry for outpatient follow-up. Patient's questions were answered she was safe for discharge home at this time and given return precautions. Medical Records Attestation: I reviewed the patient's medical records. Lab Data Attestation: I reviewed the patient's lab results. Imaging Data Attestation: I personally reviewed and interpreted this imaging study as follows: My impression: Impressions Foot X-Ray 09/22/24 21:29 IMPRESSION: 1. Chip avulsion fractures of dorsolateral aspect of anterior process of calcaneus. Foot X-Ray 09/22/24 21:30 IMPRESSION: 1. No fracture. Discharge Plan Discharge Clinical Impression: Ankle sprain and strain, Acquired calcaneus deformity of left ankle Patient Disposition: Home, Self-Care Condition: Stable Instructions: Antibiotic Form Additional Instructions: Your x-ray shows a small chip fracture of the dorsal lateral aspect of your left calcaneus. Recommendations for pain control including Tylenol and ibuprofen as well as maintaining the splint and crutches for ambulation support. Will refer you to a hydro station operator and independent living specialist to help provide further recommendations and treatment options. Return with any new or worsening concerns such as increased swelling, numbness in the foot, increased pain, difficulty ambulating or any other concerns. Keep the nail avulsion clean and dressed and you can apply Neosporin or bacitracin to this. The toenail itself might fall off on its own. Patient Language: Singaporean Prescriptions: No Action sertraline 50 mg tablet 50 mg PO DAILY Follow-up/Referrals: Rosario Cintron DPM [Other] - 1 Week (Chip avulsion fractures of dorsolateral aspect of anterior process of calcaneus.) Baldemar Cohen Jr., DPM [Physician] - 1 Week (Chip avulsion fractures of dorsolateral aspect of anterior process of calcaneus.) Krystle,MD Bailey [Primary Care Provider] - Time of Disposition: 22:09
[2024-09-22] MEDS: NEOMYCIN/POLYMYXIN/BACITRACIN OINTMENT PACKET 1 PACKET TOPICAL (22:19)
[2024-09-22 22:25] VITALS: BP 132/69; PULSE 64; RESP 17; O2SAT 100
== END 2024-09-22 22:26 | disposition home or self-care (01) ==
PROVIDERS: Emergency Provider Student in an Organized Health Care Education/Training Program; PCP Family Medicine
DX: S93.402A Sprain of unspecified ligament of left ankle, initial encounter (principal); S92.002A Unspecified fracture of left calcaneus, initial encounter for closed fracture; W19.XXXA Unspecified fall, initial encounter
CPT/HCPCS: 29515; 73630; 99284

== ENCOUNTER 2025-05-05 12:22 | Emergency (ER) | payer OTHER, SELFPAY ==
--- NOTE | 2025-05-05 12:29 | ED_ITS ---
HPI - Asthma General Chief Complaint: Ear Stated Complaint: sinus/ear Source: patient Mode of arrival: ambulatory Limitations: no limitations History of Present Illness HPI Narrative: Pt is a 35 y/o female presenting with c/o bilateral otalgia (R>L). Sx began 1 week ago and have waxed and waned since onset. No tx initiated STONEWORKING BELT SANDER. reports concurrent postnasal drip. NO constitutional sx. NO additional complaints. Related Data Home Medications ?Medication ?Instructions ?Recorded ?Confirmed ?Last Taken ?Type sertraline 50 mg tablet 50 mg PO DAILY 05/05/2204/15 Unknown History norethindrone (contraceptive) 0.35 mg 05/05/25 Unknow n History mg tablet Allergies Allergy/AdvReac Type Severity Reaction Status Date / Time clindamycin Allergy Mild Rash Verified 05/05/25 12:37 erythromycin base Allergy Mild Rash Verified 05/05/25 12:37 Review of Systems Review of Systems: CONSTITUTIONAL: Denies body aches, fever, chills, or sweats. EYES: Denies visual changes, redness, or discharge. ENT: Reports bilateral otalgia. Denies rhinorrhea, congestion, sore throat CARDIOVASCULAR: Denies chest pain, palpitations, or edema. RESPIRATORY: Denies cough or dyspnea. GASTROINTESTINAL: Denies abdominal pain, nausea, vomiting, or diarrhea. GENITOURINARY: Denies dysuria or hematuria. SKIN: Denies rash, itching, or wounds. MUSCULOSKELETAL: Denies back pain, joint pain, or myalgia. NEUROLOGIC: Denies headache, numbness, tingling, or weakness. PSYCH: Denies depression or anxiety. All systems reviewed & are unremarkable except as noted in HPI and below Exam Narrative: GENERAL: Well-appearing, well-nourished, and in no acute distress. Morbidly obese HEAD: Normocephalic, atraumatic. EYES: EOMI. No redness or drainage. Conjunctivae normal. ENT: Mucous membranes pink and moist. Nares clear. No rhinorrhea. Throat normal. Uvula midline. No mastoid tenderness NECK: Normal AROM. Supple. No lymphadenopathy. CHEST: No respiratory distress. HEART: Regular rate EXTREMITIES: Normal range of motion. SKIN: Warm, dry, no rash. Capillary refill normal. Normal skin turgor. NEURO: No focal deficits. Alert and oriented x3. Gait steady. PSYCH: Normal affect. No signs of depression or anxiety. HENMT: Ears: EAC's normal and TM abnormal (TMs intact bilaterally) bulging on the right, erythematous on the right and with fluid behind the TM bilateral Course Course Level of Care: Express Care Visit MDM - Asthma MDM Narrative Medical decision making narrative: Discussed elevated blood pressure readings with patient and advised daily BP monitoring and f/u with PCP if persisting. Discharge Plan Discharge Clinical Impression: Elevated blood pressure reading in office without diagnosis of hypertension Otitis media Qualifiers: Otitis media type: suppurative Chronicity: acute Laterality: right Recurrence: not specified as recurrent Spontaneous tympanic membrane rupture: without spontaneous rupture Qualified Code(s): H66.001 - Acute suppurative otitis media without spontaneous rupture of ear drum, right ear Acute serous otitis media, left ear Qualifiers: Recurrence: not specified as recurrent Qualified Code(s): H65.02 - Acute serous otitis media, left ear Patient Disposition: Home Condition: Stable Instructions: Antibiotic Form, Ear Infection (AC) Additional Instructions: Go straight to ER should your symptoms become worse or should any new symptoms develop Patient Language: Kinyarwanda Prescriptions: New amoxicillin 500 mg capsule 500 mg PO Q12H Qty: 14 0RF No Action sertraline 50 mg tablet 50 mg PO DAILY norethindrone (contraceptive) 0.35 mg tablet Follow-up/Referrals: Krystle,MD Bailey [Primary Care Provider, Unknown] - 05/06/25 Time of Disposition: 12:43
[2025-05-05 12:32] VITALS: BP 147/81; PULSE 70; RESP 18; TEMP 36.5; O2SAT 98
--- OUTSIDE RECORDS SUMMARY | 2025-05-05 15:29 | XMS_ITS | Clinical Summary ---
Author Organization [address] Address [address] [place] [id number] Care Team Providers Care Safety Risk Lead Name Role Phone Bailey Dalton MD Primary Care Provi ulises Bailey Dalton MD Unavailable [phone] Allergies Active Allergy Reactions Criticality Noted Date Comments Clindamycin Hives Medium 04/15/2019 Erythromycin Unknown 04/15/2019 Medications omeprazole (PriLOSEC) 10 mg capsule Take 1 capsule (10 mg total) by mouth as needed Active ibuprofen (ADVIL,MOTRIN) 800 mg tabletIndications :Closed nondisplaced fracture of left calcaneus with routine healing, unspecified portion of calcaneus, subsequent encounter Take 1 tablet (800 mg total) by mouth 3 (three) times a day 90 tablet 09/25/19 25 Active norgestimate-ethi nyl estradioL (ORTHO-CYCLEN) 0.25-0.035 mg per tabletIndications :Encounter for surveillance of contraceptive pills Take 1 tablet by mouth daily 84 tablet 3 11/05/19 25 026 Active sertraline (ZOLOFT) 100 mg tabletIndications :Anxiety TAKE 1 TABLET(100 MG) BY MOUTH DAILY 90 tablet 1 05/04/20 25 Active sertraline (ZOLOFT) 100 mg tabletIndications :Anxiety Take 1 tablet (100 mg total) by mouth daily 90 tablet 1 11/05/19 25 025 Discontinued Active Problems Problem Noted Date Diagnosed Date Breast cyst, right 05/17/2021 Menorrhagia with regular cycle 03/13/2021 Assessment & Plan (11/04/2024 8:15 AM CDT): Assessment & Plan (06/25/2022 8:55 AM EXTENSION WORK DIRECTOR): Continue to follow with [facility]- set up follow up Update me with any changes Assessment & Plan (03/13/2021 8:52 AM CDT): Previously treated with OCP Will refer to [facility]- does want to hold off on OCP's for now Will check labs for possible PCOS Update me after the visit Call for questions or concerns Well adult exam 05/01/2019 Overview (11/04/2024): Encouraged a healthy diet, and regular physical activity to her level Health Maintenance: Last PAP: 07/2024- Neg Last Tdap: 04/2019 Last Flu: 2021 Last COVID: encouraged Assessment & Plan (11/04/2024 8:15 AM CDT): Encouraged a healthy diet, and regular physical activity to her level Health Maintenance: Last PAP: 07/2024- Neg Last Tdap: 04/2019 Last Flu: 2021 Last COVID: encouraged Assessment & Plan (06/25/2022 8:53 AM EXTENSION WORK DIRECTOR): Encouraged a healthy diet, and regular physical [...] driving Health Maintenance: Last PAP: 2years ago- [facility]. Will refer to [facility] Last Tdap: 04/2019 Last Flu: encourage Last COVID: encouraged Assessment & Plan (05/01/2019 11:09 AM CDT): Work on healthy low carb diet Healthy activity for 30 minutes daily Wear sun screen, seat belts No texting/drinking and driving Health Maintenance: Last PAP:last month Last Tdap:: today Last Flu: todat IFG (impaired fasting glucose) 05/01/2019 Assessment & Plan (11/04/2024 8:15 AM CDT): Orders: Hemoglobin A1c; Future Albumin Creatinine Ratio, Urine; Future Assessment & Plan (06/25/2022 8:54 AM EXTENSION WORK DIRECTOR): Chronic Labs ordered Continue healthy changes Call [...] 44.9 in adult 05/01/2019 Assessment & Plan (11/04/2024 8:15 AM CDT): Chronic, improved BMI Follow-up includes: education provided. Assessment & Plan (11/11/2023 3:30 PM CDT): BMI Follow-up includes: exercise counseling. Assessment & Plan (06/25/2022 8:54 AM EXTENSION WORK DIRECTOR): BMI Follow-up includes: nutrition counseling. Assessment & Plan (03/13/2021 8:44 AM CDT): BMI Follow-up includes: nutrition counseling. Assessment & Plan (09/09/2019 8:54 AM EXTENSION WORK DIRECTOR): BMI Follow-up includes: nutrition counseling. Assessment & Plan (05/01/2019 11:11 AM CDT): BMI Follow-up includes: nutrition counseling. Depression, major, recurrent 04/15/2019 Assessment & Plan (11/04/2024 8:15 AM CDT): Assessment & Plan (06/25/2022 8:54 AM EXTENSION WORK DIRECTOR): Chronic, stable Continue zoloft Continue healthy changes for her mood Call if s/sx worsen or change Assessment & Plan (03/13/2021 8:46 AM CDT): Continue healthy changes for her mood Continue zoloft- encouraged to take zoloft daily Recheck in 6 months Call for questions or concerns Assessment & Plan (09/09/2019 8:53 AM EXTENSION WORK DIRECTOR): Doing well on current regimen Continue current [...] the er Anxiety 04/15/2019 Assessment & Plan (11/04/2024 8:15 AM CDT): Assessment & Plan (06/25/2022 8:54 AM EXTENSION WORK DIRECTOR): Chronic, stable Continue zoloft Continue healthy changes [...] it, Preservative Free, Intramuscular 05/01/2019 Influenza, Unspecified 04/14/2024(Deferr ed: Patient Refused),04/14/2024(Deferred: Patient decision),04/14/2024(Deferred: Patient decision),04/14/2023(Deferred: Patient Refused),04/14/2023(Deferred: Patient decision),04/14/2023(Deferred: Patient decision),04/14/2023(Deferred: Patient Refused),04/14/2022,04/14/2021(Deferre d: Patient Refused),04/14/2018(Deferred: Patient Refused) [...] containing alc ohol? 2-4 times a month 11/04/2024 Q2: How many drinks containi ng alcohol do you have on a typical day when you are drinking? 1 or 2 11/04/2024 Q3: How often do you have si x or more drinks on one occasion? Never 11/04/2024 PHQ-2 Answer Date Recorded PHQ-2 Total Score (If total score is 3 or more points, staff should administer the PHQ-9) 2 11/04/2024 PHQ-9 Answer Date Recorded PHQ-9 Total Score 13 11/04/2024 Comments No Sex and Gender Information Value Date Recorded Sex Assigned at Not on file Legal Sex Female 8:55 PM EXTENSION WORK DIRECTOR Gender Identity Female 10/04/2019 8:16 PM CDT Sexual Orientation Straight 10/04/2019 8: 16 PM CDT Obstetrics History Last Filed Vital Signs Vital Sign Reading Time Taken Comments Blood Pressure 118/84 11/04/2024 7:41 AM CDT Pulse 78 11/04/2024 7:41 AM CDT Temperature 36.5 C (97.7 F) 11/04/2024 7:41 AM CDT Respiratory Rate 12 11/04/2024 7:41 AM CDT Oxygen Saturation 98% 11/04/2024 7:41 AM CDT Inhaled Oxygen Concentration - - Weight 116.3 kg (256 lb 4.8 oz) 11/04/2024 7:41 AM CDT Height 165.1 cm (5' 5) 11/04/2024 7:41 AM CDT Body Mass Index 42.65 11/04/2024 7:41 AM CDT Plan of Treatment Health Maintenance Due Date Last Done Comments HPV Vaccines (1 - 3-dose SCDM series) 2019 Cervical Cancer Screening 05/17/2024 05/17/2021 Covid-19 Vaccine ( season) 2025 03/22/2021, 02/22/2021 Influenza Vaccine (#1) 2025 04/14/2022, 2018 Depression Screening 11/04/2025 11/04/2024, 11/04/2024, 09/24/2024, Additional history exists Regular Well Visit/Exam 18-64 11/04/2025 11/04/2024, 09/03/2023, 09/03/2023, Additional history exists DTaP/Tdap/Td Vaccine (2 - Td or Tdap) 05/01/2029 05/01/2019 Hepatitis B Screening Completed 10/10/2013 Hepatitis C Screening Completed 10/10/2013 Pneumococcal vaccine <65 Aged Out No longer eligible based on patient's age to complete this topic Varicella Vaccines Discontinued Procedures Procedure Name Priority Date/Time Associated Diagnosis Comments HEPATITIS PANEL, ACUTE Routine 10/10/2013 4:00 PM CDT from Last 3 Months or Most Recently Relevant to Health Maintenance Results * (ABNORMAL) Hepatitis panel, acute (10/10/2013 4:00 PM CDT) HepBsAg NONREACT NONREACTIVE 10/10/2013 5:33 PM [facility] [employer] HISTORICAL RESULTS Comment: Siemens CentaurXP using JOSIAH (chemiluminescent immunoassay) technology. NONREACTIVE: IgM antibodies to Hepatitis B Surface antigen not detected. REACTIVE: IgM antibodies to Hepatitis B Surface antigen detected. Reactive results will be confirmed by neutralization testing. HBsAb (immune status) REACTIVE(H) NONREACTIVE 10/10/2013 4:53 PM [facility] HISTORICAL RESULTS Comment: Siemens CentaurXP using JOSIAH (chemiluminescent immunoassay) technology. NONREACTIVE: IgM antibodies to Hepatitis B Surface antibody not detected. REACTIVE: IgM antibodies to Hepatitis B Surface antibody detected. Hep B core IgM NONREACT NONREACTIVE 4 5:33 PM [facility] [employer] HISTORICAL RESULTS Comment: Siemens CentaurXP using JOSIAH (chemiluminescent immunoassay) technology. NONREACTIVE: IgM antibodies to Hepatitis B Core antigen not detected. EQUIVOCAL: IgM antibodies to Hepatitis B Core antigen may or may not be present. Obtain a new specimen and retest. REACTIVE: IgM antibodies to Hepatitis B Core antigen detected. Hep A IgM NONREACT NONREACTIVE 10/10/2013 5:33 PM [facility] HISTORICAL RESULTS Comment: Siemens CentaurXP using JOSIAH (chemiluminescent immunoassay) technology. NONREACTIVE: IgM antibodies to Hepatitis A not detected. This does not exclude possibility of exposure to Hepatitis A or early acute infection. EQUIVOCAL:IgM antibodies to Hepatitis A may or may not be present. Suggest recollection and retest. REACTIVE: Antibodies to Hepatitis A detected. Hep C Ab NONREACT NONREACTIVE 10/10/2013 5:33 PM [facility] HISTORICAL RESULTS Comment: Siemens CentaurXP using JOSIAH [...] MICROBIOLOGY - GENERAL O RDERABLES Final Result [facility] HISTORICAL RESULTS from Last 3 Months or Most Recently Relevant to Health Maintenance Insurance [facility] CHOICE PLUS Care Teams Safety Risk Lead Relationship Specialty Start Date End Date Bailey Dalton MD [address] [place], [place] [id number] PCP - General 09/09/19 Bailey Dalton MD [address] [place] [address] Family Medicine 09/09/19
== END 2025-05-05 12:45 | disposition home or self-care (01) ==
PROVIDERS: Emergency Provider Registered Nurse; PCP Family Medicine
DX: R03.0 Elevated blood-pressure reading, without diagnosis of hypertension (principal); H66.001 Acute suppurative otitis media without spontaneous rupture of ear drum, right ear; H65.02 Acute serous otitis media, left ear
CPT/HCPCS: 99213; G0463